=== PATIENT | male | born 1945 | race Caucasian/White ===

== ENCOUNTER 2018-01-08 14:35 | Inpatient (IN) ==
[2018-01-08] MEDS ORDERED: FUROSEMIDE 100 MG/10 ML VIAL IV STA (15:08)
[2018-01-08 15:42] LABS: Basophils # 0.1 10*3/uL (0.0-0.2); Basophils % 0.6 % (0.0-0.8); Eosinophils # 0.1 10*3/uL (0.0-0.87); Eosinophils % 1.5 % (0.00-10.9); Hematocrit 45.6 VOL% (42.0-52.0); Hemoglobin 14.6 GM/DL (14.0-18.0); Immature Granulocytes % 0.3 %; Immature Granulocytes Absolute 0.03 #; Lymphocytes # 0.9 10*3/uL (1.4-4.0); Lymphocytes % 9.6 % (21.2-54.2); Mean Corpuscular Hemoglobin 29 PG (27-34); Mean Corpuscular Volume 88.9 FL (87-102); Mean Platelet Volume 12.1 FL (9.6-12.0); Monocytes # 1.2 10*3/uL (0.11-0.8); Monocytes % 13.3 % (1.7-12.7); Neutrophils # 6.6 10*3/uL (1.4-7.4); Neutrophils % 74.7 % (38.7-73.9); Platelet Count 133 T/CUMM (130-400); Red Blood Count 5.13 MC/CUMM (3.8-5.5); Red Cell Distribution Width 16.4 % (9.3-17.3); White Blood Count 8.9 T/CUMM (4-12)
[2018-01-08] MEDS ORDERED: LEVOFLOXACIN INJ 500 MG in PREMIX 1 EACH IV STA (15:52)
[2018-01-08 16:04] LABS: Alanine Aminotransferase 39 U/L (16-61); Alkaline Phosphatase 231 U/L (45-117); Aspartate Amino Transferase 45 U/L (0-37); Blood Urea Nitrogen 33 MG/DL (7-18); Calcium 9.5 MG/DL (8.5-10.1); Glucose 89 MG/DL (74-106); Osmolality,Calculated 280.7 MOS/KG (273-304); Potassium 4.5 MMOL/L (3.5-5.1); Sodium 138 MMOL/L (136-145); Total Protein 8.5 G/DL (6.4-8.3)
[2018-01-08 17:19] LABS: Risk Ratio 3.09; VLDL CHOLESTEROL 29.4 MG/DL
[2018-01-08] MEDS: ALBUTEROL/IPRATROPIUM 3 ML NEB RESP TX SCH (19:07)
[2018-01-08] MEDS: glipiZIDE 5 MG TABLET PO SCH (22:26)
[2018-01-08] MEDS: CARVEDILOL 25 MG TABLET PO SCH (22:27)
[2018-01-08] MEDS: ISOSORBIDE DINITRATE 10 MG TABLET PO SCH (22:27)
[2018-01-08] MEDS: HEPARIN 5,000 UNIT/1 ML VIAL SUBCUT SCH (22:28)
[2018-01-08] MEDS: MULTIVITAMIN (OCUVITE) TABLET PO SCH (22:28)
[2018-01-08] MEDS: guaiFENesin/DM ER 600-30 MG TABLET PO SCH (22:28)
[2018-01-09] MEDS: ALBUTEROL/IPRATROPIUM 3 ML NEB RESP TX SCH ×5 (01:00→19:22)
[2018-01-09] MEDS: HEPARIN 5,000 UNIT/1 ML VIAL SUBCUT SCH ×3 (05:18→21:48)
[2018-01-09 06:08] LABS: Albumin 2.5 G/DL (3.4-5.0); Bilirubin,Total 0.6 MG/DL (0.2-1.0); Calcium 9.1 MG/DL (8.5-10.1); Potassium 4.2 MMOL/L (3.5-5.1); Total Protein 7.5 G/DL (6.4-8.3)
[2018-01-09 06:20] LABS: Basophils # 0.1 10*3/uL (0.0-0.2); Eosinophils # 0.1 10*3/uL (0.0-0.87); Eosinophils % 1.1 % (0.00-10.9); Hematocrit 43.1 VOL% (42.0-52.0); Hemoglobin 13.7 GM/DL (14.0-18.0); Immature Granulocytes % 1.8 %; Immature Granulocytes Absolute 0.13 #; Lymphocytes # 0.8 10*3/uL (1.4-4.0); Lymphocytes % 11.1 % (21.2-54.2); Mean Corpuscular HGB Conc 31.8 GM/DL (32-36); Mean Corpuscular Hemoglobin 28 PG (27-34); Mean Corpuscular Volume 88.9 FL (87-102); Monocytes # 0.9 10*3/uL (0.11-0.8); Monocytes % 12.9 % (1.7-12.7); Neutrophils # 5.2 10*3/uL (1.4-7.4); Neutrophils % 72.1 % (38.7-73.9); Platelet Count 101 T/CUMM (130-400); Red Blood Count 4.85 MC/CUMM (3.8-5.5); Red Cell Distribution Width 16.5 % (9.3-17.3); White Blood Count 7.1 T/CUMM (4-12)
[2018-01-09 06:54] LABS: Band Neutrophils 1 % (0-10); Eosinophils 4 % (0-10); Hypochromasia 1+; Lymphocytes 9 % (20-55); Ovalocytes Slight; Platelet Estimate Decreased; Segmented Neutrophils 75 % (50-85); Total Cells Counted 100
[2018-01-09] MEDS: CHOLECALCIFEROL 1,000 UNIT TABLET PO SCH (10:54)
[2018-01-09] MEDS: MULTIVITAMIN (OCUVITE) TABLET PO SCH ×2 (10:55→21:50)
[2018-01-09] MEDS: ALLOPURINOL 300 MG TABLET PO SCH (10:55)
[2018-01-09] MEDS: guaiFENesin/DM ER 600-30 MG TABLET PO SCH ×2 (10:55→21:49)
[2018-01-09] MEDS: OMEGA 3 ACID ETHYL ESTERS 1 GM CAPSULE PO SCH (10:55)
[2018-01-09] MEDS: FINASTERIDE 5 MG TABLET PO SCH ×2 (10:55→11:03)
[2018-01-09] MEDS: ISOSORBIDE DINITRATE 10 MG TABLET PO SCH ×3 (10:55→21:49)
[2018-01-09] MEDS: CARVEDILOL 25 MG TABLET PO SCH ×2 (10:56→21:49)
[2018-01-09] MEDS: glipiZIDE 5 MG TABLET PO SCH ×2 (11:00→21:49)
[2018-01-09] MEDS: FUROSEMIDE 40 MG/4 ML VIAL IV SCH ×2 (11:14→16:26)
[2018-01-09] MEDS: SPIRONOLACTONE 25 MG TABLET PO SCH (14:15)
[2018-01-09 16:56] LABS: Immunoglobulin G 853 MG/DL (700-1600); Immunoglobulin M < 21 MG/DL (40-230); Total Protein 7.1 G/DL (6.4-8.3)
[2018-01-09 16:57] LABS: Immunoglobulin A 1130 MG/DL (70-400)
[2018-01-09] MEDS: LEVOFLOXACIN INJ 750 MG in PREMIX 1 EACH IV SCH ×2 (21:49→21:54)
[2018-01-10] MEDS: ALBUTEROL/IPRATROPIUM 3 ML NEB RESP TX SCH ×4 (00:59→19:27)
[2018-01-10 05:57] LABS: Basophils % 0.6 % (0.0-0.8); Eosinophils # 0.1 10*3/uL (0.0-0.87); Eosinophils % 1.2 % (0.00-10.9); Hematocrit 43.5 VOL% (42.0-52.0); Hemoglobin 13.6 GM/DL (14.0-18.0); Immature Granulocytes % 0.4 %; Immature Granulocytes Absolute 0.03 #; Lymphocytes # 0.7 10*3/uL (1.4-4.0); Lymphocytes % 10.5 % (21.2-54.2); Mean Corpuscular HGB Conc 31.3 GM/DL (32-36); Mean Corpuscular Hemoglobin 28 PG (27-34); Mean Corpuscular Volume 90.1 FL (87-102); Mean Platelet Volume 12.2 FL (9.6-12.0); Monocytes # 0.7 10*3/uL (0.11-0.8); Monocytes % 10.7 % (1.7-12.7); Neutrophils # 5.2 10*3/uL (1.4-7.4); Neutrophils % 76.6 % (38.7-73.9); Platelet Count 120 T/CUMM (130-400); Red Blood Count 4.83 MC/CUMM (3.8-5.5); Red Cell Distribution Width 16.5 % (9.3-17.3); White Blood Count 6.7 T/CUMM (4-12)
[2018-01-10 06:18] LABS: Albumin 2.8 G/DL (3.4-5.0); Bilirubin,Total 0.7 MG/DL (0.2-1.0); Calcium 9.4 MG/DL (8.5-10.1); Potassium 4.4 MMOL/L (3.5-5.1)
[2018-01-10] MEDS: HEPARIN 5,000 UNIT/1 ML VIAL SUBCUT SCH ×3 (07:44→21:00)
[2018-01-10 08:33] LABS: Total Protein (Chem) 7.1 G/DL (6.4-8.3)
[2018-01-10 08:34] LABS: Immunoglobulin A (Chem) 1130 MG/DL (70-400); Immunoglobulin G (Chem) 853 MG/DL (700-1600); Immunoglobulin M (Chem) < 21 MG/DL (40-230)
[2018-01-10] MEDS: FUROSEMIDE 40 MG/4 ML VIAL IV SCH (09:18)
[2018-01-10] MEDS: CHOLECALCIFEROL 1,000 UNIT TABLET PO SCH (10:37)
[2018-01-10] MEDS: SPIRONOLACTONE 25 MG TABLET PO SCH (10:38)
[2018-01-10] MEDS: CARVEDILOL 25 MG TABLET PO SCH ×2 (10:38→20:39)
[2018-01-10] MEDS: ALLOPURINOL 300 MG TABLET PO SCH (10:38)
[2018-01-10] MEDS: glipiZIDE 5 MG TABLET PO SCH ×2 (10:38→20:41)
[2018-01-10] MEDS: guaiFENesin/DM ER 600-30 MG TABLET PO SCH ×2 (10:38→20:39)
[2018-01-10] MEDS: MULTIVITAMIN (OCUVITE) TABLET PO SCH ×2 (10:39→20:40)
[2018-01-10] MEDS: ISOSORBIDE DINITRATE 10 MG TABLET PO SCH ×3 (10:39→20:40)
[2018-01-10] MEDS: OMEGA 3 ACID ETHYL ESTERS 1 GM CAPSULE PO SCH (10:39)
[2018-01-10] MEDS: FINASTERIDE 5 MG TABLET PO SCH (10:40)
[2018-01-10 10:56] LABS: Albumin (SPE) 3.6 G/DL (3.2-5.3); Albumin (SPE) Rel % 50.6 %; Alpha 1 (SPE) 0.3 G/DL (0.1-0.4); Alpha 1 (SPE) Rel % 4.3 %; Alpha 2 (SPE) 0.9 G/DL (0.4-1.0); Alpha 2 (SPE) Rel % 12.5 %; Beta (SPE) 1.6 G/DL (0.5-1.1); Gamma (SPE) 0.8 G/DL (0.7-1.7); Gamma (SPE) Rel % 10.8 %
[2018-01-10 10:57] LABS: Beta (SPE) Rel % 21.8 %
[2018-01-10] MEDS: MAGNESIUM CHLORIDE 64 MG TABLET PO SCH ×2 (12:45→20:39)
[2018-01-10] MEDS: ASCORBIC ACID 500 MG TABLET PO SCH ×2 (12:45→20:40)
[2018-01-10] MEDS ORDERED: FINASTERIDE 5 MG TABLET PO SCH (21:00)
[2018-01-11] MEDS: ALBUTEROL/IPRATROPIUM 3 ML NEB RESP TX SCH ×2 (00:09→08:10)
[2018-01-11 05:17] LABS: Calcium 8.9 MG/DL (8.5-10.1); Osmolality,Calculated 287.8 MOS/KG (273-304); Potassium 4.2 MMOL/L (3.5-5.1)
[2018-01-11] MEDS: HEPARIN 5,000 UNIT/1 ML VIAL SUBCUT SCH (06:15)
[2018-01-11] MEDS: ALLOPURINOL 300 MG TABLET PO SCH (09:53)
[2018-01-11] MEDS: guaiFENesin/DM ER 600-30 MG TABLET PO SCH (09:53)
[2018-01-11] MEDS: CHOLECALCIFEROL 1,000 UNIT TABLET PO SCH (09:53)
[2018-01-11] MEDS: MAGNESIUM CHLORIDE 64 MG TABLET PO SCH (09:54)
[2018-01-11] MEDS: ASCORBIC ACID 500 MG TABLET PO SCH (09:54)
[2018-01-11] MEDS: CARVEDILOL 25 MG TABLET PO SCH (09:54)
[2018-01-11] MEDS: MULTIVITAMIN (OCUVITE) TABLET PO SCH (09:54)
[2018-01-11] MEDS: OMEGA 3 ACID ETHYL ESTERS 1 GM CAPSULE PO SCH (09:55)
[2018-01-11] MEDS: glipiZIDE 5 MG TABLET PO SCH (09:55)
[2018-01-11] MEDS: ISOSORBIDE DINITRATE 10 MG TABLET PO SCH (09:55)
[2018-01-11 12:13] VITALS: BP 155/104
[2018-01-15] MEDS ORDERED: NON-FORMULARY MEDICATION (Alendronate Sodium [Fosamax] 70 MG) PO SCH (09:00)
== END 2018-01-11 13:45 | disposition home or self-care (01) | DRG 291 ==
LOC: N.ED 14:35 → N.EDINP 16:51 → SUATTDRO 16:51 → N.EDINP 18:20 → N.TELEN 18:40
PROVIDERS: ATTEND Internal Medicine